=== PATIENT | female | born 1955 | race Caucasian/White ===

== ENCOUNTER → 2024-04-18 10:33 | Outpatient (REF) | payer OTHER, SELFPAY | LOC: RAD 10:33 | PROVIDERS: ATTENDING PHYSICIAN Nurse Practitioner Family | DX: M54.50 Low back pain, unspecified (principal) | CPT/HCPCS: 72110 ==

== ENCOUNTER → 2024-04-28 10:07 | Outpatient (REF) | payer OTHER, SELFPAY | LOC: RCS 10:07 | PROVIDERS: ATTENDING PHYSICIAN Nuclear Medicine Nuclear Cardiology; FAMILY PHYSICIAN Physician Assistant | DX: I35.0 Nonrheumatic aortic (valve) stenosis (principal) | CPT/HCPCS: 93306 ==

== ENCOUNTER 2024-05-07 09:33 | Emergency (ER) | payer OTHER, SELFPAY ==
[2024-05-07 09:33] VITALS: BMI 37.5
[2024-05-07 09:35] VITALS: BP 174/76
--- NOTE | 2024-05-07 10:05 | EDRN ---
Pt has ' 2' orthopedic boots and her own crutches ; ' this isn't my first rodeo'
--- NOTE | 2024-05-07 10:33 | ED.GENMED ---
History of Present Illness
General
Chief Complaint: Musculo-Skeletal Complaint
Source: patient
Exam Limitations: none
Time Seen by Provider: 05/07/24 09:41
Nursing documentation reviewed up to this point in time: agreed with
History of Present Illness
History of Present Illness:
Patient is a 68-year-old female who presents to the emergency department with left foot pain and difficulty weightbearing this morning. Patient dropped a bird house on her left foot yesterday. Initially did not have any problems weightbearing
until this morning. Patient denies any previous history of injury.
Past History
Past History
ED Past Medical History: Asthma, CVA, GERD, Hypercholesterolemia and NIDDM
ED Past Surgical History: Other (cataract surgery)
Social History
Tobacco: Non-smoker
Alcohol: Other
Drug: None
Personal:
Living: with family
Employment: Employed
Family History
Family History: Other (Noncontributory)
Review of Systems
Review of Systems
All Other Systems: Not applicable
Phy Exam
Physical Exam
Physical Exam:
Physical Exam
General: No apparent distress, alert and appropriate, well nourished, well hydrated
HENT: Normocephalic, supple
Eyes: Clear sclera, conjuctiva without injection
Neuro: Alert and oriented x 3, CN II - XII intact, no motor focality, no cerebellar dysfunction
Skin: Scattered ecchymosis over extremities from long-term anticoagulation use and steroids
Psychiatric: well kept. interactive and cooperative
Extremities: No edema, cyanosis. Left foot dorsum of the left midfoot ecchymosis and tenderness. No tenderness of toes or ankle.
Scores
Heart Failure Risk
Heart Failure Risk Score: Not Applicable
Heart Score for Chest Pain Patients
STEMI patient?: Not applicable
Withdrawal Assessment of Alcohol
Withdrawal Assessment Completed?: Not applicable
Course
Orders/Labs/Results
Orders:
Orders
05/07/24 09:45
Foot, Left 3 View [CR Foot - Left Min 3 Views] Urgent
Comment:
Reason For Exam: injury
Vital Signs
Initial and Last Documented VS:
Initial Vital Signs
Temp Pulse Resp BP Pulse Ox
98.6 F 94 18 174/76 96
05/07/24 09:35 05/07/24 09:35 05/07/24 09:35 05/07/24 09:35 05/07/24 09:35
Last Documented Vital Signs
Temp Pulse Resp BP Pulse Ox
98.6 F 94 18 174/76 96
05/07/24 09:35 05/07/24 09:35 05/07/24 09:35 05/07/24 09:35 05/07/24 09:35
*Radiology
Radiology exam reviewed: preliminary read by ED provider (No fracture. Atherosclerosis)
*Pulse Oximetry
Patient hypoxic: not evaluated
*EKG
Interpreted by ED Provider?: NA
*Asset Recovery Specialist Interpretation
Rate: Asset Recovery Specialist- N/A
*Critical Care Note
Total Time (30-74mins, 75-104mins- exclusive of procedures): Not Applicable
ED Attending Note
-
Portions of this chart may have been created with voice recognition software.� Occasional wrong word or��sound alike� substitutions may have occurred due to the inherent limitations of voice recognition software.
Discharge Plan
Departure
Patient Disposition: Home (Routine Discharge)
Date of Disposition: 05/07/24
Time of Disposition: 10:38
Patient with high blood pressure during this ER visit?: Yes
Condition: Good
Covid-19: Not Applicable
Discharge Problem:
Contusion of foot, left
Instructions: Contusion (DC), Using Cold for Pain, BLOOD PRESSURE
Prescriptions:
No Action
insulin degludec [Tresiba FlexTouch U-100] 100 UNIT/ML insulin pen
28 unit SC HS
Patient Comments:
22 units of Triseba last HS
insulin lispro [Humalog KwikPen Insulin] 100 UNIT/ML insulin pen
0 units SC ACHS
Patient Comments:
SLIDING SCALE WITH MEALS. Took 9 units with gurjit last HS
clopidogrel 75 mg Tablet
75 mg PO DAILY
aspirin 81 mg Tablet,Delayed Release (Dr/Ec)
81 mg PO DAILY
albuterol sulfate 90 mcg/actuation Hfa Aerosol Inhaler
2 puff INHALATION R QIDPRN PRN (Reason: SOB)
alendronate [Fosamax] 70 mg Tablet
70 mg PO Q7D
carboxymethylcellulose sodium [Refresh] 1 % Drops, Liquid Gel
1 drp BOTH EYES QIDPRN PRN (Reason: DRYNESS)
oxycodone 5 mg tablet
5 mg PO Q8H PRN (Reason: Pain) Qty: 10 0RF
atorvastatin 40 mg Tablet
40 mg PO HS
fluticasone propion-salmeterol [Wixela Inhub] 250-50 mcg/dose Blister With Device
1 inh INHALATION BID
sertraline 100 mg Tablet
100 mg PO DAILY
famotidine 20 mg Tablet
20 mg PO DAILY
prednisone 1 mg Tablet
4 mg PO DAILY
Actemra 200 mg/10 mL (20 mg/mL) Solution
200 mg IV Q4W
Referrals:
Bri Moreau PA [Family Provider] - Follow up in 5-7 days
Activity Restrictions/Additional Instructions:
Use acetaminophen 650 mg to 1000 mg every 6 hours for pain. Elevation and ice are schmid
Interventions
Interventions:
*Risk Screen - Suicide Last Done: 05/07/24 09:35
*General Assessment Last Done: 05/07/24 09:35
*Neglect/Abuse Screening Last Done: 05/07/24 09:35
ED- Fall Risk Assessment Last Done: 05/07/24 09:43
*ED COVID-19 Vaccine History Last Done: 05/07/24 09:35
ED-Musculoskeletal Assessment Last Done: 05/07/24 09:42
Discharge Date and Time
Print Language: SWISS
== END 2024-05-07 10:56 | disposition home or self-care (01) ==
LOC: EMR 09:33
PROVIDERS: EMERGENCY PHYSICIAN Emergency Medicine; FAMILY PHYSICIAN Physician Assistant
DX: S90.32XA Contusion of left foot, initial encounter (principal); W20.8XXA Other cause of strike by thrown, projected or falling object, initial encounter; R03.0 Elevated blood-pressure reading, without diagnosis of hypertension; E11.9 Type 2 diabetes mellitus without complications; K21.9 Gastro-esophageal reflux disease without esophagitis; J45.909 Unspecified asthma, uncomplicated; E78.00 Pure hypercholesterolemia, unspecified; I35.0 Nonrheumatic aortic (valve) stenosis; M19.90 Unspecified osteoarthritis, unspecified site; M81.0 Age-related osteoporosis without current pathological fracture; E07.9 Disorder of thyroid, unspecified; H54.61 Unqualified visual loss, right eye, normal vision left eye; F32.A Depression, unspecified; Z96.652 Presence of left artificial knee joint; Z86.73 Personal history of transient ischemic attack (TIA), and cerebral infarction without residual deficits; Z79.82 Long term (current) use of aspirin; Z79.4 Long term (current) use of insulin; Z88.0 Allergy status to penicillin; Z88.1 Allergy status to other antibiotic agents; Z91.048 Other nonmedicinal substance allergy status
CPT/HCPCS: 99283; 73630

== ENCOUNTER → 2024-06-16 15:12 | Outpatient (REF) | payer OTHER, SELFPAY | LOC: PAVMRI 15:12 | PROVIDERS: ATTENDING PHYSICIAN Ophthalmology Neuro-ophthalmology; FAMILY PHYSICIAN Physician Assistant | DX: R48.3 Visual agnosia (principal) | CPT/HCPCS: 70544; 70547; 70551 ==

== ENCOUNTER → 2024-10-05 14:40 | Outpatient (REF) | payer OTHER, SELFPAY | LOC: EMG 14:40 | PROVIDERS: ATTENDING PHYSICIAN Orthopaedic Surgery Hand Surgery; FAMILY PHYSICIAN Nurse Practitioner Family | DX: M25.531 Pain in right wrist (principal) | CPT/HCPCS: 95886; 95910 ==

== ENCOUNTER → 2025-03-04 08:10 | Outpatient (REF) | payer OTHER, SELFPAY | LOC: RAD 08:10 | PROVIDERS: ATTENDING PHYSICIAN Nurse Practitioner Family; OTHER PHYSICIAN Internal Medicine | DX: R74.8 Abnormal levels of other serum enzymes (principal) | CPT/HCPCS: 76700 ==

== ENCOUNTER 2025-04-09 15:06 | Emergency (ER) | payer OTHER, SELFPAY ==
[2025-04-09 15:11] VITALS: BP 165/71
[2025-04-09 15:41] LABS: % Basophils 1.1 % (0-2); % Eosinophils 1.9 % (0-6); % Immature Granulocytes 1.2 % (0-0.5); % Lymphocytes 21.7 % (20.5-51.1); % Monocytes 9.5 % (1.7-9.3); % Neutrophils 64.6 % (42.2-75.2); Absolute Basophils 0.1 10^3/uL (0-0.2); Absolute Eosinophils 0.1 10^3/uL (0-0.7); Absolute Immature Granulocytes 0.1 10^3/uL (0-0.05); Absolute Lymphocytes 1.6 10^3/uL (1.2-3.4); Absolute Monocytes 0.7 10^3/uL (0.1-0.6); Absolute Neutrophils 4.8 10^3/uL (1.4-6.5); Hematocrit 37.2 % (37.0-47.0); Hemoglobin 12.4 g/dL (12.0-16.0); Mean Corp Hgb Conc. 33.3 g/dL (33.0-37.0); Mean Corpuscular Hgb 30.2 pg (27.0-31.0); Mean Corpuscular Volume 90.7 fL (81.0-99.0); Mean Platelet Volume 9.6 fL (7.4-10.4); Nucleated Red Blood Cells % 0 %; Platelet Count 225 10^3/uL (130-400); Red Cell Dist. Width 12.8 % (11.5-14.5); White Blood Cell Count 7.5 10^3/uL (4.8-10.8)
[2025-04-09 15:50] LABS: ALT (SGPT) 16 U/L (0-35); AST (SGOT) 25 U/L (14-36); Albumin 3.9 g/dl (3.5-5.0); Alkaline Phosphatase 80 U/L (38-126); Blood Urea Nitrogen 21 mg/dl (7-17); Calcium 9.6 mg/dl (8.4-10.2); Carbon Dioxide 27 mmol/L (22-30); Chloride 106 mmol/L (98-107); Glucose 105 mg/dl (70-99); Potassium 4.3 mmol/L (3.5-5.1); Sodium 139 mmol/L (135-145); Total Bilirubin 0.6 mg/dl (0.2-1.3); Total Protein 6.2 g/dl (6.3-8.2); eGFR 54.73
[2025-04-09 16:02] LABS: Troponin I < 0.012 ng/ml
[2025-04-09 18:24] VITALS: BP 163/71
[2025-04-09 18:53] LABS: Troponin I < 0.012 ng/ml
[2025-04-09 19:00] VITALS: BP 179/59
--- NOTE | 2025-04-09 19:20 | ED.GENMED ---
History of Present Illness
General
Chief Complaint: Chest Pain
Source: patient
Exam Limitations: none
Time Seen by Provider: 04/09/25 18:09
Nursing documentation reviewed up to this point in time: agreed with
History of Present Illness
History of Present Illness:
Patient to ED with complaint of left ant chest pain. Pain started suddently this afternoon. Denies any SOB, n/v/diaphoresis. No dizziness or vision changes. States pain initially radiated to her her left arm but this resolved. Brouhgt to ED by
spouse for eval.
Past History
Past History
ED Past Medical History: Asthma, CVA, GERD, Hypercholesterolemia and NIDDM
ED Past Surgical History: Other (cataract surgery)
Social History
Tobacco: Non-smoker
Alcohol: Other
Drug: None
Personal:
Living: with family
Employment: Employed
Family History
Family History: Other (Noncontributory)
Review of Systems
Review of Systems
Allergies reviewed?: Yes
All Other Systems: ROS reviewed and negative except as documented in HPI and ROS
Constitutional: Reports no symptoms
EENT: Reports no symptoms
Respiratory: Reports no symptoms
Cardiac: Reports chest pain (Left ant. chest pain)
ABD/GI: Reports no symptoms
: Reports no symptoms
Musculoskeletal: Reports no symptoms
Skin: Reports no symptoms
Neurological: Reports no symptoms
Psychiatric: Reports no symptoms
Phy Exam
General Physical Exam
General Presentation: well appearing and no apparent distress
General age: appears stated age
General Skin: warm and dry
General Habitus: normal
Cardiovascular Exam
Cardiovascular Exam: regular rate/rhythm and no edema
Pulmonary Exam
Pulmonary Exam: lungs clear and no respiratory distress
Musculoskeletal Exam
Musculoskeletal Exam: full ROM
Skin Exam
Skin Exam: normal color, warm/dry and no rash
Psychiatric Exam
Psychiatric Exam: normal mood/affect
Scores
Heart Score for Chest Pain Patients
STEMI patient?: No
History: Slightly or Non-Suspicious
ECG: Normal
Age: >/= 65 years
Risk Factors: 1 or 2 Risk Factors
Troponin: </= Normal Limit
Heart Score for Chest Pain Patients: 3
Heart Score Risk: 2.5% MACE over next 6 weeks
Course
Orders/Labs/Results
Orders:
Orders
04/09/25 15:07
ECG [Electrocardiogram (*1)] Urgent
Reason for Study: Chest Pain
EKG- Treatment ONCE
04/09/25 15:26
Complete Blood Count/With Diff Urgent
Comprehensive Metabolic Panel Urgent
Troponin I Urgent
04/09/25 18:15
Troponin I Urgent
04/09/25 18:16
Electrocardiogram (*1) Urgent
Reason for Study: Chest Pain
EKG- Treatment ONCE
Chest [CR Chest - 2 Views ] Urgent
Comment:
Reason For Exam: chest pain
Abnormal Lab Results
04/09/25
15:26
RBC 4.10 L 10^6/uL
(4.20-5.40)
Abs Immat Gran (auto) 0.1 H 10^3/uL
(0-0.05)
Absolute Monos (auto) 0.7 H 10^3/uL
(0.1-0.6)
Immature Gran % 1.2 H %
(0-0.5)
Monocytes % 9.5 H %
(1.7-9.3)
BUN 21 H mg/dl
(7-17)
Creatinine 1.1 H mg/dL
(0.6-1.0)
Glucose 105 H mg/dl
(70-99)
Total Protein 6.2 L g/dl
(6.3-8.2)
04/09/25 15:26
04/09/25 15:26
Vital Signs
Initial and Last Documented VS:
Initial Vital Signs
Temp Pulse Resp BP
98.3 F 83 16 165/71
04/09/25 15:11 04/09/25 15:11 04/09/25 15:11 04/09/25 15:11
Last Documented Vital Signs
Temp Pulse Resp BP Pulse Ox
98.3 F 61 16 179/59 96
04/09/25 15:11 04/09/25 19:00 04/09/25 19:00 04/09/25 19:00 04/09/25 19:00
*Radiology
Radiology exam reviewed: preliminary read by ED provider (NAHUM)
*Pulse Oximetry
Patient hypoxic: no
*EKG
Interpretation: normal
Rate: normal
Rhythm: sinus
*Critical Care Note
Total Time (30-74mins, 75-104mins- exclusive of procedures): Not Applicable
Update Note
Update Note:
Patient to ED with complaitn of left ant. chest pain. Pain started this afternoon. Lasted approx 1 hour and then resolved. States she feels intermittent pain since. SHe has been pain free in ED. VSS. Pulse ox 98% RA. Labs reviewed, no
concerning findings. Troponin neg. x 2. EKG nSR. CXR NAD. Doubtful for ACS WIll discharge home, close follow up with PCP. SHe has followed with Dr. Craft in the past, she will call on Saturday to schedule followup appt. Given instructions on s/s
to return to ED and she is agreeable to plan.
ED Attending Note
-
Portions of this chart may have been created with voice recognition software.� Occasional wrong word or��sound alike� substitutions may have occurred due to the inherent limitations of voice recognition software.
Discharge Plan
Departure
Patient Disposition: Home (Routine Discharge)
Date of Disposition: 04/09/25
Time of Disposition: 19:26
Patient with high blood pressure during this ER visit?: No
Condition: Good
Covid-19: Not Applicable
Discharge Problem:
Chest pain
Instructions: Chest Pain DCA Follow Up
Prescriptions:
No Action
insulin degludec [Tresiba FlexTouch U-100] 100 UNIT/ML insulin pen
28 unit SC HS
Patient Comments:
22 units of Triseba last HS
insulin lispro [Humalog KwikPen Insulin] 100 UNIT/ML insulin pen
0 units SC ACHS
Patient Comments:
SLIDING SCALE WITH MEALS. Took 9 units with gurjit last HS
clopidogrel 75 mg Tablet
75 mg PO DAILY
aspirin 81 mg Tablet,Delayed Release (Dr/Ec)
81 mg PO DAILY
albuterol sulfate 90 mcg/actuation Hfa Aerosol Inhaler
2 puff INHALATION R QIDPRN PRN (Reason: SOB)
alendronate [Fosamax] 70 mg Tablet
70 mg PO Q7D
carboxymethylcellulose sodium [Refresh] 1 % Drops, Liquid Gel
1 drp BOTH EYES QIDPRN PRN (Reason: DRYNESS)
oxycodone 5 mg tablet
5 mg PO Q8H PRN (Reason: Pain) Qty: 10 0RF
atorvastatin 40 mg Tablet
40 mg PO HS
fluticasone propion-salmeterol [Wixela Inhub] 250-50 mcg/dose Blister With Device
1 inh INHALATION BID
sertraline 100 mg Tablet
100 mg PO DAILY
famotidine 20 mg Tablet
20 mg PO DAILY
prednisone 1 mg Tablet
4 mg PO DAILY
Actemra 200 mg/10 mL (20 mg/mL) Solution
200 mg IV Q4W
Referrals:
Ochoa Moreno MD [Family Provider, Family Practice]
Activity Restrictions/Additional Instructions:
Return to the emergency department immediately for any changes in/worsening of your symptoms.
Interventions
Interventions:
*Risk Screen - Suicide Last Done: 04/09/25 15:11
*General Assessment Last Done: 04/09/25 18:17
*Neglect/Abuse Screening Last Done: 04/09/25 15:11
*ED- Fall Risk Assessment Last Done: 04/09/25 18:17
*ED COVID-19 Vaccine History Last Done: 04/09/25 18:17
*Nursing Disposition Last Done: 04/09/25 19:52
ED- Cardiac Assessment Last Done: 04/09/25 18:17
Discharge Date and Time
Discharge Date/Time: 04/09/25 19:53
Print Language: ARMENIAN
== END 2025-04-09 19:53 | disposition home or self-care (01) ==
LOC: EMR 15:06
PROVIDERS: Nurse Practitioner; EMERGENCY PHYSICIAN Emergency Medicine; FAMILY PHYSICIAN Family Medicine
DX: R07.89 Other chest pain (principal); J45.909 Unspecified asthma, uncomplicated; E11.9 Type 2 diabetes mellitus without complications; E78.00 Pure hypercholesterolemia, unspecified; Z86.73 Personal history of transient ischemic attack (TIA), and cerebral infarction without residual deficits
CPT/HCPCS: 99285; 71046; 80053; 84484; 85025; 93005

== ENCOUNTER → 2025-04-15 14:59 | Outpatient (REF) | payer OTHER, SELFPAY | LOC: RAD 14:59 | PROVIDERS: ATTENDING PHYSICIAN Nurse Practitioner Family | DX: M79.671 Pain in right foot (principal) | CPT/HCPCS: 73630 ==

== ENCOUNTER → 2025-05-04 15:37 | Outpatient (REF) | payer OTHER, SELFPAY | LOC: RCS 15:37 | PROVIDERS: ATTENDING PHYSICIAN Nuclear Medicine Nuclear Cardiology; FAMILY PHYSICIAN Nurse Practitioner Family | DX: I35.0 Nonrheumatic aortic (valve) stenosis (principal); R01.1 Cardiac murmur, unspecified | CPT/HCPCS: 93306 ==

== ENCOUNTER → 2025-06-01 09:42 | Outpatient (REF) | payer OTHER, SELFPAY | LOC: PET 09:42 | PROVIDERS: ATTENDING PHYSICIAN Physician Assistant | DX: R07.89 Other chest pain (principal); R06.02 Shortness of breath; I35.0 Nonrheumatic aortic (valve) stenosis | CPT/HCPCS: 78431; A9555; J2785 ==

== ENCOUNTER → 2025-06-11 10:18 | Outpatient (REF) | payer OTHER, SELFPAY | LOC: RAD 10:18 | PROVIDERS: ATTENDING PHYSICIAN Physician Assistant Surgical; FAMILY PHYSICIAN Nurse Practitioner Family | DX: M25.551 Pain in right hip (principal) | CPT/HCPCS: 73502 ==

== ENCOUNTER → 2025-08-12 07:33 | Outpatient (REF) | payer OTHER, SELFPAY | LOC: PAVMRI 07:33 | PROVIDERS: ATTENDING PHYSICIAN Psychiatry & Neurology Neurology; FAMILY PHYSICIAN Nurse Practitioner Family | DX: R51.9 Headache, unspecified (principal) | CPT/HCPCS: 70553; A9575 ==